=== PATIENT | male | born 1945 | race Caucasian/White ===

== ENCOUNTER 2016-09-12 08:26 | Day surgery (SDC) | payer MEDICARE, BC ==
[2016-09-10 14:40] VITALS: BMI 23.5
[~2016-09-12 08:26] MED LIST: LACTATED RINGERS 1,000 ML IV SCH
[2016-09-12 09:36] VITALS: RESP 16; TEMP 97.5
[2016-09-12] MEDS ORDERED: LIDOCAINE 1% 20 ML VIAL (10MG/ML) FOR IV START INTRADERMA ONE (09:43)
[2016-09-12] MEDS ORDERED: PROPOFOL 10 MG/ML 20 ML VIAL IV ONE (10:15)
--- NOTE | 2016-09-12 10:33 | P.PCN ---
Date of Procedure: 09/12/16 Procedure(s) Performed: BRIEF HISTORY: Patient is a 70-year-old pleasant at male, scheduled for an elective colonoscopy as a part of evaluation of prior history of colon polyps. Last colonoscopy was 5 years ago. PROCEDURE PERFORMED: Colonoscopy with snare polypectomy. PREOPERATIVE DIAGNOSIS: History of colon polyps. IV sedation per Anesthesia. PROCEDURE: After informed consent was obtained, the patient, was brought into the endoscopy unit. IV conscious sedation was administered by Anesthesia under continuous monitoring. Initially the Olympus CF-160 flexible video colonoscope was then inserted in the rectum, gradually advanced into the cecum without any difficulty. Careful examination was performed as the scope was gradually being withdrawn. Ileocecal valve and the appendiceal orifice were visualized and appeared normal. Prep was excellent. Mucosa of the cecum, ascending colon, transverse colon, descending colon, sigmoid colon, and rectum appeared normal. In the distal rectum there was a 7-8 mm polyp removed by snare polypectomy. Scattered sigmoid diverticulosis seen. Retroflexion was performed in the rectum and no lesions were seen. The patient tolerated the procedure well. IMPRESSION: 7-8 mm sigmoid colon polyp status post polypectomy Scattered sigmoid diverticulosis. RECOMMENDATIONS: Findings of this examination were discussed with the patient as well as his family. He was advised to follow with the biopsy results. If the biopsy shows a tubular adenoma he can have a repeat colonoscopy in 5 years.
[2016-09-12 11:04] VITALS: BP 119/72; PULSE 64
== END 2016-09-12 11:20 | disposition home or self-care (01) ==
LOC: ORWHC2ENDO 08:26
PROVIDERS: ATTEND Internal Medicine Gastroenterology
DX: Z12.11 Encounter for screening for malignant neoplasm of colon (principal); Z86.010 Personal history of colon polyps; D12.8 Benign neoplasm of rectum; K57.30 Diverticulosis of large intestine without perforation or abscess without bleeding; I10 Essential (primary) hypertension; Z88.1 Allergy status to other antibiotic agents; E78.5 Hyperlipidemia, unspecified; E11.9 Type 2 diabetes mellitus without complications; Z79.899 Other long term (current) drug therapy
CPT/HCPCS: 88305; 45385; J2704

== ENCOUNTER 2023-04-07 08:38 | Day surgery (SDC) | payer MEDICARE ==
[2023-04-02 16:07] VITALS: BMI 23.1
[~2023-04-07 08:38] MED LIST changes: +LIDOCAINE 1% (10MG/ML) FOR IV START INTRADERMA PRN
[2023-04-07 09:37] VITALS: RESP 16; TEMP 97.4
[2023-04-07] MEDS ORDERED: PROPOFOL 10 MG/ML 20 ML VIAL IV ONE (10:06)
--- NOTE | 2023-04-07 10:35 | P.PCN ---
Date of Procedure: 04/07/23 Procedure(s) Performed: BRIEF HISTORY: Patient is a 77-year-old pleasant male scheduled for an elective colonoscopy as a part of evaluation of prior history of colon polyps. Last colonoscopy was 5 years ago. PROCEDURE PERFORMED: Colonoscopy with biopsy and snare polypectomy. PREOPERATIVE DIAGNOSIS: History of colon polyps. IV sedation per Anesthesia. PROCEDURE: After informed consent was obtained, the patient, was brought into the endoscopy unit. IV sedation was administered by Anesthesia under continuous monitoring. Digital rectal examination was normal. Initially the Olympus CF-160 flexible video colonoscope was then inserted in the rectum, gradually advanced into the cecum without any difficulty. Careful examination was performed as the scope was gradually being withdrawn. Ileocecal valve and the appendiceal orifice were visualized and appeared normal. Prep was excellent. Mucosa of the cecum as a minute a polyp that was removed by cold biopsy. Rest of the, ascending colon, transverse colon, normal. In the descending colon there was a 6 minute a polyp that was removed by cold snare polypectomy. Scattered left sided diverticulosis seen. In the distal sigmoid colon there was a short segment of inflamed appearing mucosa extending from 28-30 cm from the anal verge and the vicinity of diverticulosis suspicious for recent episode of acute diverticulitis. Rest of the sigmoid colon, and rectum appeared normal. Retroflexion was performed in the rectum and no lesions were seen. The patient tolerated the procedure well. IMPRESSION: 3 mm cecal polyp status post cold biopsy 6 mm desscending colon polyp status post polypectomy Scattered left sided diverticulosis Inflamed mucosa involving the distal sigmoid colon extending from 28-30 cm from the anal verge in the vicinity of diverticulosis, suspicious for recent episode of acute diverticulitis ,status post biopsy RECOMMENDATIONS: Findings of this examination were discussed with the patient as well as his family. He was advised to follow with the biopsy results. If the biopsies reveal adenoma he can have a repeat colonoscopy in 5 years..
[2023-04-07 10:56] VITALS: BP 131/80; PULSE 79
== END 2023-04-07 11:17 | disposition home or self-care (01) ==
LOC: ORWHC2ENDO 08:38
PROVIDERS: ATTEND Internal Medicine Gastroenterology
DX: Z12.11 Encounter for screening for malignant neoplasm of colon (principal); D12.0 Benign neoplasm of cecum; D12.4 Benign neoplasm of descending colon; K57.30 Diverticulosis of large intestine without perforation or abscess without bleeding; I10 Essential (primary) hypertension; E78.5 Hyperlipidemia, unspecified; N40.0 Benign prostatic hyperplasia without lower urinary tract symptoms; K21.9 Gastro-esophageal reflux disease without esophagitis; K58.9 Irritable bowel syndrome, unspecified; Z86.010 Personal history of colon polyps; Z91.041 Radiographic dye allergy status; Z79.83 Long term (current) use of bisphosphonates; Z79.899 Other long term (current) drug therapy
CPT/HCPCS: 88305; 45380; 45385; J2704